=== PATIENT | male | born 1960 | race Caucasian/White ===

== ENCOUNTER 2020-12-28 07:40 | Inpatient (IN) | payer MEDICAID, OTHER ==
[~2020-12-28] VITALS: Ht 175.3 cm; Wt 76.6 kg
[2020-12-28] MEDS ORDERED: cloNIDine HCL 0.1 MG TAB PO ONE (08:00)
[2020-12-28 09:16] LABS: Basophils # (auto) 0.1 10 ^3/uL (0-0.2); Basophils % (auto) 1.2 % (0.0-2.0); Eosinophils # (auto) 0.2 10 ^3/uL (0-0.8); Eosinophils % (auto) 1.4 % (0.0-7.0); Hemoglobin 12.8 g/dL (13.5-17.5); Lymphocytes # (auto) 1.4 10 ^3/uL (0.4-5.4); Lymphocytes % (auto) 11.9 % (10.0-50.0); Mean Corpuscular Hemoglobin 29.2 pg (28.0-32.0); Mean Corpuscular Hgb Conc. 32.8 g/dL (32.0-36.0); Mean Corpuscular Volume 88.9 fL (80.0-100.0); Monocytes # (auto) 1.2 10 ^3/uL (0-1.3); Monocytes % (auto) 10.3 % (0.0-12.0); Neutrophils # (auto) 8.6 10 ^3/uL (1.6-8.6); Neutrophils % (auto) 75.2 % (37.0-80.0); Red Blood Cells 4.38 10^6/uL (4.5-5.90); White Blood Cell 11.4 10^3/uL (4.4-10.8)
[2020-12-28 09:36] LABS: Albumin 3.6 g/dL (3.4-5.0); Calcium 8.4 mg/dL (8.5-10.1); Magnesium 2.9 mg/dL (1.6-2.6); Potassium 3.8 mmol/L (3.5-5.1)
[2020-12-28 09:42] LABS: Total Protein 6.8 g/dL (6.4-8.2)
[2020-12-28] MEDS ORDERED: MORPHINE SULFATE INJECTION 2 MG/ML SYRG IV PRN (12:00)
[2020-12-28] MEDS ORDERED: NITROGLYCERIN 0.4 MG SL TAB SL PRN (12:00)
[2020-12-28] MEDS ORDERED: MORPHINE SULFATE 4 MG/ML SYR/VIAL IV PRN (12:00)
[2020-12-28] MEDS ORDERED: ACETAMINOPHEN 325 MG TAB PO PRN (12:00)
[2020-12-28] MEDS ORDERED: TEMAZEPAM 15 MG CAP PO PRN (12:00)
[2020-12-28] MEDS ORDERED: SODIUM CHLORIDE 0.9% 1,000 ML IV SCH (12:00)
[2020-12-28] MEDS ORDERED: ONDANSETRON HCL 4 MG/2 ML VIAL IV PRN (12:00)
[2020-12-28] MEDS ORDERED: LABETALOL HCL 5 MG/ML 4ML SYRINGE IV ONE (13:04)
[2020-12-28] MEDS ORDERED: hydrALAZINE HCL 20 MG/ML VL ONE (13:30)
[2020-12-28] MEDS ORDERED: hydrALAZINE HCL 20 MG/ML VL IV ONE (13:30)
[2020-12-28] MEDS ORDERED: ALBUTEROL SULF 2.5 MG/0.5ML(0.5%) NEB SOLN NEB ONE (14:30)
[2020-12-28] MEDS ORDERED: IPRATROPIUM BROM 0.5 MG/2.5ML INH SOL NEB ONE (14:30)
[2020-12-28] MEDS ORDERED: methylPREDNISolone SOD SUCC 125 MG/2 ML VL IV ONE (14:45)
[2020-12-28] MEDS ORDERED: SUCCINYLCHOLINE CHLORIDE 20 MG/ML 10ML VIAL IV ONE ×2 (15:06→15:30)
[2020-12-28] MEDS ORDERED: ETOMIDATE (2MG/ML) 20ML VIAL IV ONE ×2 (15:06→15:30)
[2020-12-28] MEDS ORDERED: PROPOFOL 100 ML IV ONE (15:07)
[2020-12-28 15:17] VITALS: BP 216/97
[2020-12-28] MEDS: PROPOFOL 100 ML IV SCH (15:25)
[2020-12-28] MEDS: MIDAZOLAM DRIP 50 mg/50mL 50 ML IV SCH (15:25)
[2020-12-28] MEDS ORDERED: MIDAZOLAM DRIP 50 mg/50mL 50 ML IV ONE (15:41)
[2020-12-28] MEDS: fentaNYL Drip 2500mCg/250mlNS 250 ML IV SCH (16:09)
[2020-12-28 16:17] VITALS: BP 126/67
[2020-12-28 18:32] VITALS: BP 114/64
[2020-12-28] MEDS ORDERED: levoFLOXacin 250MG 50 ML IV ONE (19:00)
[2020-12-28 21:40] VITALS: BP 111/66
[2020-12-28] MEDS ORDERED: ASCORBIC ACID 500 MG TAB PO SCH (22:00)
[2020-12-28] MEDS: methylPREDNISolone SOD SUCC 40 MG/ML VL IV SCH (22:13)
[2020-12-29] VITALS (69 sets, daily range): BP systolic 102–137; BP diastolic 65–89
[2020-12-29] MEDS: methylPREDNISolone SOD SUCC 40 MG/ML VL IV SCH ×4 (05:59→23:24)
[2020-12-29] MEDS ORDERED: NITROGLYCERIN 0.4 MG SL TAB SL PRN (06:00)
[2020-12-29] MEDS ORDERED: MORPHINE SULFATE INJECTION 2 MG/ML SYRG IV PRN (06:00)
[2020-12-29] MEDS: NOREPINEPHRINE 8 MG/250ML KIT 250 ML IV SCH (06:00)
[2020-12-29 08:37] LABS: Basophils # (auto) 0 10 ^3/uL (0-0.2); Basophils % (auto) 0.2 % (0.0-2.0); Eosinophils # (auto) 0 10 ^3/uL (0-0.8); Hematocrit 36.1 % (41.0-53.0); Hemoglobin 11.9 g/dL (13.5-17.5); Lymphocytes # (auto) 0.5 10 ^3/uL (0.4-5.4); Lymphocytes % (auto) 5.5 % (10.0-50.0); Mean Corpuscular Hemoglobin 29.4 pg (28.0-32.0); Mean Corpuscular Hgb Conc. 32.9 g/dL (32.0-36.0); Mean Corpuscular Volume 89.4 fL (80.0-100.0); Monocytes # (auto) 0.3 10 ^3/uL (0-1.3); Monocytes % (auto) 3.7 % (0.0-12.0); Neutrophils # (auto) 8.2 10 ^3/uL (1.6-8.6); Neutrophils % (auto) 90.6 % (37.0-80.0); Red Blood Cells 4.04 10^6/uL (4.5-5.90); Red Cell Distribution Width 14.3 % (11.8-14.3)
[2020-12-29 08:52] LABS: Urine Amorphous Crystal MANY /hpf (None Seen); Urine Bacteria NONE SEEN /hpf (None Seen); Urine Blood 2+ /uL (Negative); Urine Mucus FEW (None Seen); Urine Specific Gravity 1.026 (1.001-1.035); Urine WBC 21 /hpf (0 - 3)
[2020-12-29 08:57] LABS: Albumin 2.8 g/dL (3.4-5.0); Calcium 8.5 mg/dL (8.5-10.1); Potassium 4.6 mmol/L (3.5-5.1)
[2020-12-29 08:59] LABS: BUN/Creatinine Ratio 23.8
[2020-12-29 09:10] LABS: Bilirubin, Total 0.7 mg/dL (0.2-1.0)
[2020-12-29 09:13] LABS: Amphetamine Screen, Urine NEGATIVE (NEGATIVE); Barbiturate Scree,Urine NEGATIVE (NEGATIVE); Benzodiazephine Screen, Urine POSITIVE (NEGATIVE); Cannabinoid Screen, Urine POSITIVE (NEGATIVE); Cocaine Screen, Urine NEGATIVE (NEGATIVE); Opiate Scree,Urine NEGATIVE (NEGATIVE); Phencyclidine Screen, Urine NEGATIVE (NEGATIVE)
[2020-12-29] MEDS: cefTRIAXone 1GM/50ML D5W 50 ML IV SCH (09:49)
[2020-12-29] MEDS: PANTOPRAZOLE 40 MG/10 ML VIAL INJ IV SCH (09:49)
[2020-12-29] MEDS: ENOXAPARIN SOD 40 MG/0.4 ML SYRINGE SC SCH (09:50)
[2020-12-29] MEDS: AZITHROMYCIN 500MG/ 250ML 250 ML IV SCH (09:50)
[2020-12-29] MEDS: amLODIPine BESYLATE 5 MG TAB PO SCH (10:00)
[2020-12-29] MEDS ORDERED: ENOXAPARIN SOD 30 MG/0.3 ML SYRINGE SC SCH (10:00)
[2020-12-29] MEDS ORDERED: ENOXAPARIN SOD 40 MG/0.4 ML SYRINGE SC SCH (10:00)
[2020-12-29] MEDS ORDERED: ZINC SULFATE 220mg CAP or TAB PO SCH (10:00)
[2020-12-29] MEDS: PROPOFOL 100 ML IV SCH ×3 (13:01→23:27)
[2020-12-29] MEDS: SODIUM CHLORIDE 0.9% 1,000 ML IV SCH (15:24)
[2020-12-29] MEDS: fentaNYL Drip 2500mCg/250mlNS 250 ML IV SCH (16:00)
[2020-12-29] MEDS: MIDAZOLAM DRIP 50 mg/50mL 50 ML IV SCH (16:45)
[2020-12-30] VITALS (100 sets, daily range): BP systolic 88–136; BP diastolic 57–93
[2020-12-30] MEDS: SODIUM CHLORIDE 0.9% 1,000 ML IV SCH ×2 (02:27→14:51)
[2020-12-30] MEDS: methylPREDNISolone SOD SUCC 40 MG/ML VL IV SCH ×3 (06:09→22:00)
[2020-12-30 07:27] LABS: Basophils # (auto) 0 10 ^3/uL (0-0.2); Eosinophils # (auto) 0 10 ^3/uL (0-0.8); Hematocrit 34.5 % (41.0-53.0); Hemoglobin 11.4 g/dL (13.5-17.5); Lymphocytes # (auto) 0.6 10 ^3/uL (0.4-5.4); Lymphocytes % (auto) 4.3 % (10.0-50.0); Mean Corpuscular Hemoglobin 29.7 pg (28.0-32.0); Mean Corpuscular Hgb Conc. 33.1 g/dL (32.0-36.0); Mean Corpuscular Volume 89.9 fL (80.0-100.0); Monocytes # (auto) 0.6 10 ^3/uL (0-1.3); Monocytes % (auto) 4.6 % (0.0-12.0); Neutrophils # (auto) 12.2 10 ^3/uL (1.6-8.6); Neutrophils % (auto) 91.1 % (37.0-80.0); Red Blood Cells 3.83 10^6/uL (4.5-5.90); Red Cell Distribution Width 14.3 % (11.8-14.3); White Blood Cell 13.4 10^3/uL (4.4-10.8)
[2020-12-30 07:32] LABS: BUN/Creatinine Ratio 24.5; Calcium 8.5 mg/dL (8.5-10.1); Potassium 4.8 mmol/L (3.5-5.1)
[2020-12-30] MEDS: MIDAZOLAM DRIP 50 mg/50mL 50 ML IV SCH (07:43)
[2020-12-30] MEDS: PROPOFOL 100 ML IV SCH ×3 (07:44→17:46)
[2020-12-30] MEDS: NOREPINEPHRINE 8 MG/250ML KIT 250 ML IV SCH ×2 (07:48→09:28)
[2020-12-30] MEDS: amLODIPine BESYLATE 5 MG TAB PO SCH (09:13)
[2020-12-30] MEDS: cefTRIAXone 1GM/50ML D5W 50 ML IV SCH (09:13)
[2020-12-30] MEDS: PANTOPRAZOLE 40 MG/10 ML VIAL INJ IV SCH (10:37)
[2020-12-30] MEDS: AZITHROMYCIN 500MG/ 250ML 250 ML IV SCH (10:37)
[2020-12-30] MEDS: ENOXAPARIN SOD 40 MG/0.4 ML SYRINGE SC SCH (10:37)
[2020-12-30] MEDS: DOPamine 1600MCG/ML D5W 250 ML IV SCH (11:18)
[2020-12-30] MEDS: fentaNYL Drip 2500mCg/250mlNS 250 ML IV SCH (13:59)
[2020-12-31] VITALS (100 sets, daily range): BP systolic 95–192; BP diastolic 64–133
[2020-12-31] MEDS: PROPOFOL 100 ML IV SCH ×3 (02:28→08:48)
[2020-12-31] MEDS: DOPamine 1600MCG/ML D5W 250 ML IV SCH ×2 (02:46→19:45)
[2020-12-31] MEDS: SODIUM CHLORIDE 0.9% 1,000 ML IV SCH (04:40)
[2020-12-31 05:52] LABS: Basophils # (auto) 0 10 ^3/uL (0-0.2); Basophils % (auto) 0.1 % (0.0-2.0); Eosinophils # (auto) 0 10 ^3/uL (0-0.8); Hematocrit 36.6 % (41.0-53.0); Hemoglobin 12.3 g/dL (13.5-17.5); Lymphocytes # (auto) 0.7 10 ^3/uL (0.4-5.4); Lymphocytes % (auto) 3.9 % (10.0-50.0); Mean Corpuscular Hemoglobin 29.8 pg (28.0-32.0); Mean Corpuscular Hgb Conc. 33.5 g/dL (32.0-36.0); Mean Corpuscular Volume 88.8 fL (80.0-100.0); Monocytes # (auto) 0.9 10 ^3/uL (0-1.3); Monocytes % (auto) 4.8 % (0.0-12.0); Neutrophils # (auto) 16.4 10 ^3/uL (1.6-8.6); Neutrophils % (auto) 91.2 % (37.0-80.0); Red Blood Cells 4.12 10^6/uL (4.5-5.90); Red Cell Distribution Width 14.2 % (11.8-14.3); White Blood Cell 17.9 10^3/uL (4.4-10.8)
[2020-12-31 06:14] LABS: Calcium 8.1 mg/dL (8.5-10.1)
[2020-12-31] MEDS: methylPREDNISolone SOD SUCC 40 MG/ML VL IV SCH ×3 (08:11→22:01)
[2020-12-31] MEDS: fentaNYL Drip 2500mCg/250mlNS 250 ML IV SCH (08:51)
[2020-12-31] MEDS: cefTRIAXone 1GM/50ML D5W 50 ML IV SCH (09:24)
[2020-12-31] MEDS: amLODIPine BESYLATE 5 MG TAB PO SCH ×2 (10:00→16:44)
[2020-12-31] MEDS: AZITHROMYCIN 500MG/ 250ML 250 ML IV SCH (10:01)
[2020-12-31] MEDS: PANTOPRAZOLE 40 MG/10 ML VIAL INJ IV SCH (10:01)
[2020-12-31] MEDS: ENOXAPARIN SOD 40 MG/0.4 ML SYRINGE SC SCH (10:02)
[2020-12-31] MEDS: LABETALOL HCL 5 MG/ML 4ML SYRINGE IV PRN ×2 (14:51→22:46)
[2020-12-31] MEDS ORDERED: hydrALAZINE HCL 20 MG/ML VL ONE (17:22)
[2020-12-31] MEDS: hydrALAZINE HCL 20 MG/ML VL IV PRN (17:23)
[2020-12-31] MEDS ORDERED: FUROSEMIDE 40 MG/4 ML VIAL IV ONE ×2 (19:15→23:30)
[2020-12-31] MEDS: ALBUTEROL SULF 2.5 MG/0.5ML(0.5%) NEB SOLN NEB SCH (22:34)
[2020-12-31] MEDS: IPRATROPIUM BROM 0.5 MG/2.5ML INH SOL NEB SCH (22:34)
[2021-01-01] VITALS (89 sets, daily range): BP systolic 119–182; BP diastolic 79–108
[2021-01-01] MEDS: hydrALAZINE HCL 20 MG/ML VL IV PRN ×2 (00:45→14:08)
[2021-01-01] MEDS: ALBUTEROL SULF 2.5 MG/0.5ML(0.5%) NEB SOLN NEB SCH ×6 (02:20→22:51)
[2021-01-01] MEDS: IPRATROPIUM BROM 0.5 MG/2.5ML INH SOL NEB SCH ×6 (02:20→22:51)
[2021-01-01 05:44] LABS: Basophils # (auto) 0 10 ^3/uL (0-0.2); Basophils % (auto) 0.1 % (0.0-2.0); Eosinophils # (auto) 0 10 ^3/uL (0-0.8); Hematocrit 40.7 % (41.0-53.0); Hemoglobin 13.8 g/dL (13.5-17.5); Lymphocytes # (auto) 0.5 10 ^3/uL (0.4-5.4); Lymphocytes % (auto) 4.1 % (10.0-50.0); Mean Corpuscular Hgb Conc. 33.9 g/dL (32.0-36.0); Mean Corpuscular Volume 88.5 fL (80.0-100.0); Monocytes # (auto) 0.8 10 ^3/uL (0-1.3); Monocytes % (auto) 5.8 % (0.0-12.0); Neutrophils # (auto) 11.9 10 ^3/uL (1.6-8.6); Red Cell Distribution Width 14.5 % (11.8-14.3); White Blood Cell 13.3 10^3/uL (4.4-10.8)
[2021-01-01 05:54] LABS: BUN/Creatinine Ratio 34.3; Calcium 8.5 mg/dL (8.5-10.1); Potassium 4.2 mmol/L (3.5-5.1)
[2021-01-01] MEDS: methylPREDNISolone SOD SUCC 40 MG/ML VL IV SCH ×3 (06:12→21:41)
[2021-01-01] MEDS ORDERED: FUROSEMIDE 40 MG/4 ML VIAL ONE (10:57)
[2021-01-01] MEDS ORDERED: FUROSEMIDE 40 MG/4 ML VIAL IV ONE (11:00)
[2021-01-01] MEDS: cefTRIAXone 1GM/50ML D5W 50 ML IV SCH (11:04)
[2021-01-01] MEDS: PANTOPRAZOLE 40 MG/10 ML VIAL INJ IV SCH (11:04)
[2021-01-01] MEDS: FUROSEMIDE 20 MG TAB PO SCH (11:04)
[2021-01-01] MEDS: ENOXAPARIN SOD 40 MG/0.4 ML SYRINGE SC SCH (11:05)
[2021-01-01] MEDS: amLODIPine BESYLATE 5 MG TAB PO SCH (11:18)
[2021-01-01] MEDS: AZITHROMYCIN 500MG/ 250ML 250 ML IV SCH (12:04)
[2021-01-01] MEDS: METOPROLOL TARTRATE 25 MG TAB PO SCH ×2 (15:40→21:44)
[2021-01-01] MEDS: POTASSIUM CHL 20 Meq TABLET PO SCH (15:40)
[2021-01-01] MEDS: LABETALOL HCL 5 MG/ML 4ML SYRINGE IV PRN (17:19)
[2021-01-02] VITALS (26 sets, daily range): BP systolic 120–174; BP diastolic 70–107
[2021-01-02] MEDS: ALBUTEROL SULF 2.5 MG/0.5ML(0.5%) NEB SOLN NEB SCH ×6 (02:07→22:24)
[2021-01-02] MEDS: IPRATROPIUM BROM 0.5 MG/2.5ML INH SOL NEB SCH ×6 (02:08→22:24)
[2021-01-02 05:24] LABS: Basophils # (auto) 0 10 ^3/uL (0-0.2); Basophils % (auto) 0.1 % (0.0-2.0); Eosinophils # (auto) 0 10 ^3/uL (0-0.8); Hematocrit 41.7 % (41.0-53.0); Hemoglobin 13.9 g/dL (13.5-17.5); Lymphocytes # (auto) 0.6 10 ^3/uL (0.4-5.4); Lymphocytes % (auto) 5.4 % (10.0-50.0); Mean Corpuscular Hemoglobin 29.4 pg (28.0-32.0); Mean Corpuscular Hgb Conc. 33.3 g/dL (32.0-36.0); Mean Corpuscular Volume 88.5 fL (80.0-100.0); Monocytes # (auto) 1.2 10 ^3/uL (0-1.3); Monocytes % (auto) 9.8 % (0.0-12.0); Neutrophils # (auto) 10.1 10 ^3/uL (1.6-8.6); Neutrophils % (auto) 84.7 % (37.0-80.0); Red Blood Cells 4.71 10^6/uL (4.5-5.90); Red Cell Distribution Width 14.3 % (11.8-14.3)
[2021-01-02 05:37] LABS: BUN/Creatinine Ratio 45.8; Calcium 8.6 mg/dL (8.5-10.1); Potassium 4.5 mmol/L (3.5-5.1)
[2021-01-02] MEDS: hydrALAZINE HCL 20 MG/ML VL IV PRN (06:31)
[2021-01-02] MEDS: cefTRIAXone 1GM/50ML D5W 50 ML IV SCH (08:23)
[2021-01-02] MEDS: PANTOPRAZOLE 40 MG/10 ML VIAL INJ IV SCH (09:06)
[2021-01-02] MEDS: FUROSEMIDE 20 MG TAB PO SCH (09:06)
[2021-01-02] MEDS: methylPREDNISolone SOD SUCC 40 MG/ML VL IV SCH ×2 (09:07→22:04)
[2021-01-02] MEDS: AZITHROMYCIN 500MG/ 250ML 250 ML IV SCH (09:07)
[2021-01-02] MEDS: METOPROLOL TARTRATE 25 MG TAB PO SCH ×2 (09:07→22:05)
[2021-01-02] MEDS: amLODIPine BESYLATE 5 MG TAB PO SCH (09:07)
[2021-01-02] MEDS: POTASSIUM CHL 20 Meq TABLET PO SCH (09:07)
[2021-01-02] MEDS: ENOXAPARIN SOD 40 MG/0.4 ML SYRINGE SC SCH (09:08)
[2021-01-03] VITALS (13 sets, daily range): BP systolic 132–171; BP diastolic 82–103
[2021-01-03] MEDS: hydrALAZINE HCL 20 MG/ML VL IV PRN ×2 (02:13→08:41)
[2021-01-03] MEDS: ALBUTEROL SULF 2.5 MG/0.5ML(0.5%) NEB SOLN NEB SCH ×6 (02:49→22:57)
[2021-01-03] MEDS: IPRATROPIUM BROM 0.5 MG/2.5ML INH SOL NEB SCH ×6 (02:49→22:57)
[2021-01-03 04:53] LABS: Basophils # (auto) 0 10 ^3/uL (0-0.2); Basophils % (auto) 0.1 % (0.0-2.0); Eosinophils # (auto) 0 10 ^3/uL (0-0.8); Eosinophils % (auto) 0.1 % (0.0-7.0); Hematocrit 43.8 % (41.0-53.0); Hemoglobin 14.6 g/dL (13.5-17.5); Lymphocytes # (auto) 0.6 10 ^3/uL (0.4-5.4); Lymphocytes % (auto) 4.5 % (10.0-50.0); Mean Corpuscular Hemoglobin 29.5 pg (28.0-32.0); Mean Corpuscular Hgb Conc. 33.3 g/dL (32.0-36.0); Mean Corpuscular Volume 88.6 fL (80.0-100.0); Monocytes # (auto) 0.8 10 ^3/uL (0-1.3); Monocytes % (auto) 5.5 % (0.0-12.0); Neutrophils # (auto) 12.8 10 ^3/uL (1.6-8.6); Neutrophils % (auto) 89.8 % (37.0-80.0); Red Blood Cells 4.95 10^6/uL (4.5-5.90); White Blood Cell 14.2 10^3/uL (4.4-10.8)
[2021-01-03 05:10] LABS: BUN/Creatinine Ratio 48.5; Calcium 8.7 mg/dL (8.5-10.1); Potassium 4.7 mmol/L (3.5-5.1)
[2021-01-03] MEDS: cefTRIAXone 1GM/50ML D5W 50 ML IV SCH (08:40)
[2021-01-03] MEDS: methylPREDNISolone SOD SUCC 40 MG/ML VL IV SCH ×2 (09:50→22:24)
[2021-01-03] MEDS: PANTOPRAZOLE 40 MG/10 ML VIAL INJ IV SCH (09:50)
[2021-01-03] MEDS: ENOXAPARIN SOD 40 MG/0.4 ML SYRINGE SC SCH (09:51)
[2021-01-03] MEDS: FUROSEMIDE 20 MG TAB PO SCH (09:51)
[2021-01-03] MEDS: METOPROLOL TARTRATE 25 MG TAB PO SCH ×2 (09:51→22:25)
[2021-01-03] MEDS: amLODIPine BESYLATE 5 MG TAB PO SCH (09:52)
[2021-01-03] MEDS: POTASSIUM CHL 20 Meq TABLET PO SCH (09:52)
[2021-01-03] MEDS: AZITHROMYCIN 500MG/ 250ML 250 ML IV SCH (09:53)
[2021-01-03] MEDS: LABETALOL HCL 5 MG/ML 4ML SYRINGE IV PRN (13:41)
[2021-01-04] MEDS: ALBUTEROL SULF 2.5 MG/0.5ML(0.5%) NEB SOLN NEB SCH ×6 (02:42→20:43)
[2021-01-04] MEDS: IPRATROPIUM BROM 0.5 MG/2.5ML INH SOL NEB SCH ×6 (02:42→20:42)
[2021-01-04 05:00] VITALS: BP 144/95
[2021-01-04 06:40] LABS: BUN/Creatinine Ratio 43.9; Calcium 8.3 mg/dL (8.5-10.1); Potassium 4.8 mmol/L (3.5-5.1)
[2021-01-04 09:00] VITALS: BP 135/84
[2021-01-04] MEDS: PANTOPRAZOLE 40 MG/10 ML VIAL INJ IV SCH (09:29)
[2021-01-04] MEDS: methylPREDNISolone SOD SUCC 40 MG/ML VL IV SCH (09:29)
[2021-01-04] MEDS: cefTRIAXone 1GM/50ML D5W 50 ML IV SCH (09:29)
[2021-01-04] MEDS: POTASSIUM CHL 20 Meq TABLET PO SCH (09:30)
[2021-01-04] MEDS: AZITHROMYCIN 500MG/ 250ML 250 ML IV SCH (09:30)
[2021-01-04] MEDS: FUROSEMIDE 40 MG TAB PO SCH (09:31)
[2021-01-04] MEDS: METOPROLOL TARTRATE 25 MG TAB PO SCH ×2 (09:31→23:59)
[2021-01-04] MEDS: ENOXAPARIN SOD 40 MG/0.4 ML SYRINGE SC SCH (09:31)
[2021-01-04] MEDS: amLODIPine BESYLATE 5 MG TAB PO SCH (09:31)
[2021-01-04 12:06] LABS: Basophils # (auto) 0 10 ^3/uL (0-0.2); Basophils % (auto) 0.1 % (0.0-2.0); Eosinophils # (auto) 0 10 ^3/uL (0-0.8); Eosinophils % (auto) 0.1 % (0.0-7.0); Hematocrit 45.8 % (41.0-53.0); Hemoglobin 15.2 g/dL (13.5-17.5); Lymphocytes # (auto) 0.6 10 ^3/uL (0.4-5.4); Lymphocytes % (auto) 4.2 % (10.0-50.0); Mean Corpuscular Hemoglobin 29.4 pg (28.0-32.0); Mean Corpuscular Hgb Conc. 33.2 g/dL (32.0-36.0); Mean Corpuscular Volume 88.5 fL (80.0-100.0); Monocytes # (auto) 1.6 10 ^3/uL (0-1.3); Neutrophils # (auto) 12.1 10 ^3/uL (1.6-8.6); Neutrophils % (auto) 84.6 % (37.0-80.0); Red Blood Cells 5.18 10^6/uL (4.5-5.90); Red Cell Distribution Width 14.1 % (11.8-14.3); White Blood Cell 14.2 10^3/uL (4.4-10.8)
[2021-01-04] MEDS ORDERED: TAMSULOSIN HYDROCHLORIDE 0.4 MG CAP PO ONE (12:15)
[2021-01-04 13:00] VITALS: BP 152/97
[2021-01-04 17:00] VITALS: BP 128/92
[2021-01-04 22:00] VITALS: BP 124/80
[2021-01-05 05:00] VITALS: BP 145/95
[2021-01-05 05:53] LABS: Basophils # (auto) 0 10 ^3/uL (0-0.2); Basophils % (auto) 0.1 % (0.0-2.0); Eosinophils # (auto) 0.1 10 ^3/uL (0-0.8); Eosinophils % (auto) 0.7 % (0.0-7.0); Hematocrit 40.8 % (41.0-53.0); Hemoglobin 13.7 g/dL (13.5-17.5); Lymphocytes # (auto) 1.8 10 ^3/uL (0.4-5.4); Lymphocytes % (auto) 11.3 % (10.0-50.0); Mean Corpuscular Hemoglobin 29.7 pg (28.0-32.0); Mean Corpuscular Hgb Conc. 33.5 g/dL (32.0-36.0); Mean Corpuscular Volume 88.7 fL (80.0-100.0); Monocytes # (auto) 2.1 10 ^3/uL (0-1.3); Monocytes % (auto) 13.3 % (0.0-12.0); Neutrophils # (auto) 11.7 10 ^3/uL (1.6-8.6); Neutrophils % (auto) 74.6 % (37.0-80.0); Red Cell Distribution Width 14.1 % (11.8-14.3); White Blood Cell 15.7 10^3/uL (4.4-10.8)
[2021-01-05 05:55] LABS: Calcium 8.1 mg/dL (8.5-10.1); Potassium 4.2 mmol/L (3.5-5.1)
[2021-01-05] MEDS: IPRATROPIUM BROM 0.5 MG/2.5ML INH SOL NEB SCH ×4 (06:58→19:32)
[2021-01-05] MEDS: ALBUTEROL SULF 2.5 MG/0.5ML(0.5%) NEB SOLN NEB SCH ×4 (06:58→19:32)
[2021-01-05 09:00] VITALS: BP 167/101
[2021-01-05] MEDS: AZITHROMYCIN 500MG/ 250ML 250 ML IV SCH (09:28)
[2021-01-05] MEDS: cefTRIAXone 1GM/50ML D5W 50 ML IV SCH (09:28)
[2021-01-05] MEDS: PANTOPRAZOLE 40 MG/10 ML VIAL INJ IV SCH (09:28)
[2021-01-05] MEDS: amLODIPine BESYLATE 5 MG TAB PO SCH (09:29)
[2021-01-05] MEDS: ENOXAPARIN SOD 40 MG/0.4 ML SYRINGE SC SCH (09:30)
[2021-01-05] MEDS: FUROSEMIDE 40 MG TAB PO SCH (09:30)
[2021-01-05] MEDS: POTASSIUM CHL 20 Meq TABLET PO SCH (09:30)
[2021-01-05] MEDS: METOPROLOL TARTRATE 25 MG TAB PO SCH (09:30)
[2021-01-05] MEDS ORDERED: predniSONE 20 MG TAB PO SCH (10:00)
[2021-01-05 13:00] VITALS: BP 117/67
[2021-01-05 16:57] VITALS: BP 136/86
[2021-01-05] MEDS ORDERED: TAMSULOSIN HYDROCHLORIDE 0.4 MG CAP PO SCH (18:00)
[2021-01-05] MEDS ORDERED: levoFLOXacin 500MG 100 ML IV SCH (18:15)
== END 2021-01-05 21:15 | disposition hospice, home (50) | DRG 140 ==
LOC: ER 07:40 → TELE 11:57 → DOU IN ICU 12-29 07:19 → TELE-CENTR 01-03 16:13
PROVIDERS: ADMIT Emergency Medicine; ATTEND Hospitalist
PROC: 5A1945Z Respiratory Ventilation, 24-96 Consecutive Hours (ICD-10-PCS; principal; 2020-12-28)
PROC: 0BH17EZ Insertion of Endotracheal Airway into Trachea, Via Natural or Artificial Opening (ICD-10-PCS; 2020-12-28)
PROC: 06HM33Z Insertion of Infusion Device into Right Femoral Vein, Percutaneous Approach (ICD-10-PCS; 2020-12-28)
PROC: 4A143B0 Monitoring of Venous Pressure, Central, Percutaneous Approach (ICD-10-PCS; 2020-12-28)
PROC: 5A09357 Assistance with Respiratory Ventilation, Less than 24 Consecutive Hours, Continuous Positive Airway Pressure (ICD-10-PCS; 2021-01-01)
PROC: 5A09357 Assistance with Respiratory Ventilation, Less than 24 Consecutive Hours, Continuous Positive Airway Pressure (ICD-10-PCS; 2021-01-02)
DX: J43.2 Centrilobular emphysema (principal); J96.01 Acute respiratory failure with hypoxia; N17.9 Acute kidney failure, unspecified; J98.11 Atelectasis; E87.70 Fluid overload, unspecified; E04.1 Nontoxic single thyroid nodule; N39.0 Urinary tract infection, site not specified; N18.30 Chronic kidney disease, stage 3 unspecified; I12.9 Hypertensive chronic kidney disease with stage 1 through stage 4 chronic kidney disease, or unspecified chronic kidney disease; Z75.1 Person awaiting admission to adequate facility elsewhere; Z20.822 Contact with and (suspected) exposure to COVID-19; Z82.49 Family history of ischemic heart disease and other diseases of the circulatory system; Z87.891 Personal history of nicotine dependence
CPT/HCPCS: 31500; 36415; 36556; 36600; 71045; 71046; 71250; 80048; 80053; 80307; 81001; 82805; 83735; 84484; 85025; 87070; 87081; 87205; 87426; 92610; 93005; 93306; 94002; 94003; 94640; 94660; 96361; 96365; 96366; 96375; 96376; 97110; 97116; 97163; 97530; 99291; C9113; G0378; J0330; J0696; J1956; J2250; J2704; J3490